=== PATIENT | male | born 1980 | race Hispanic/Latino ===

== ENCOUNTER 2025-07-06 19:48 | Emergency (ER) | payer BC ==
[~2025-07-06] VITALS: Ht 177.8 cm; Wt 104.3 kg
--- NOTE | 2025-07-06 20:03 | NUR ---
UA CUP PROVIDED
--- NOTE | 2025-07-06 20:07 | NUR ---
UA COLLECTED AND SENT
--- NOTE | 2025-07-06 20:33 | ERN ---
General Chief Complaint: Chest Pain Stated Complaint: CHEST PAIN, SOB Time Seen by MD: 20:12 History of Present Illness Initial Comments 44-year-old male who presents for chest pains. Patient reports for the last week or so he has felt left-sided chest pains described as sharp and stabbing. Nonexertional. They do not appear to be consistent with movement. He reports that they have been going on and off for the last few days. He felt a little bit dyspneic earlier. No leg swelling. No cough congestion. Medical conditions: Diabetes, hypertension, dyslipidemia. Currently medicated for all three. Denies drug abuse. Family medical history: Diabetes in his parents, sibling from leukemia. Social history: Denies drug abuse. Denies smoking. Allergies: Coded Allergies: No Known Allergies (Unverified Allergy, Unknown, 07/06/25) Past Medical History Past Medical History: Diabetes-Type II, High Cholesterol, Hypertension Past Surgical History: Other Surgical History Other: RT ANKLE ROS Dictation CONSTITUTIONAL: No chills, no fever, no weakness, no diaphoresis, no malaise. HEAD/FACE: No signs of trauma. EENT: No eye pain, no blurred vision, no tearing, no double vision, no ear pain, no ear discharge, no nose pain, no nasal congestion, no throat pain, no throat swelling, no mouth pain. RESPIRATORY: No cough, no orthopnea, no SOB, no stridor, no wheezing. CARDIOVASCULAR: Chest pain GASTROINTESTINAL/ABDOMINAL: No abdominal pain, no constipation, no diarrhea, no nausea, no vomiting. GENITOURINARY: No abnormal discharge, no dysuria, no frequent urination, no hematuria. No complaints of pain in the genitals. MUSCULOSKELETAL: No back pain, no gout, no joint pain, no joint swelling, no muscle pain, no muscle stiffness, no neck pain. INTEGUMENTARY: No change in color, no change in hair/nails, no dryness, no lesion, no lumps, no rash. NEUROLOGICAL/PSYCH: No anxiety, not depressed, no emotional problem, no headache, no numbness, no pre-existing deficit, no history of seizures, no tremors, no weakness. HEMATOLOGIC/LYMPHATIC: Not anemic, no history of blood clots, no apparent bleeding, no bruising, glands not swollen. All Systems Negative, Except as Noted. Physical Exam Physical Exam Dictation VITAL SIGNS: Reviewed. GENERAL APPEARANCE: Alert, oriented x3, no acute distress, obese. HEAD AND FACE: Non-traumatic. EYES: PERRL, pink conjunctivas, eyelid no trauma, anterior chamber clear. EARS: Pinnas intact and no signs of trauma or erythema. Ear canals clear and no discharge. TMs no erythema. NOSE: No discharge, no bleeding. OROPHARYNX: Mouth normal, teeth no caries, tongue pink. Pharynx clear, no erythema. Tonsils no exudates, no abscesses noted. Mucous membrane moist. NECK: Supple, non-tender, no thyromegaly, no masses, no JVD, no bruits. BREAST: Deferred. CHEST: No tenderness, no crepitus, no paradoxical movement, no retractions. LUNGS: Clear, well-ventilated, symmetric, no rales, no wheezing, no rhonchi, no stridor, good breath sounds bilaterally. HEART: Regular rate, regular rhythm, no murmur, no gallops. VASCULAR: No peripheral edema. ABDOMEN: Soft, positive bowel sounds, nondistended, no guarding, nontender, no rebound, no masses no hepatomegaly, no splenomegaly, no Green's sign, no hernias. RECTAL: Deferred. GENITAL: Deferred. NEUROLOGICAL: Normal speech, gross motor function intact, gross sensory function intact. MUSCULOSKELETAL: Neck nontender, full range of motion, back nontender, full range of motion. EXTREMITIES: Nontender, full range of motion. SKIN: Color pink, dry, no turgor, no rash, no lacerations, no abrasions, no contusions. LYMPHATICS: Deferred. Results Laboratory and Microbiology Lab and Micro Result Laboratory Tests Test 07/06/25 20:07 07/06/25 20:09 07/06/25 21:26 Urine Color LIGHT-YELLOW (YELLOW) Urine Appearance CLEAR (CLEAR) Urine pH 5.0 (5.0-8.0) Urine Specific Warren 1.014 (1.001-1.031) Urine Protein NEGATIVE mg/dL (NEGATIVE) Urine Glucose (UA) NEGATIVE mg/dL (NEGATIVE) Urine Ketones NEGATIVE mg/dL (NEGATIVE) Urine Occult Blood NEGATIVE (NEGATIVE) Urine Nitrate NEGATIVE (NEGATIVE) Urine Bilirubin NEGATIVE mg/dL (NEGATIVE) Urine Urobilinogen 0.2 mg/dL (0.2-1.0) Urine Leukocyte Esterase NEGATIVE Maurice/uL White Blood Count 7.8 K/uL (4.8-10.8) Red Blood Count 4.51 MIL/uL (4.50-6.20) Hemoglobin 14.0 g/dL (14.0-18.0) Hematocrit 41.5 % (42-54) L Mean Corpuscular Volume 92.0 fL (79-99) Mean Corpuscular Hemoglobin 31.0 pg (27.0-33.0) Mean Corpuscular Hemoglobin Concent 33.7 g/dL (32.0-36.0) Red Cell Distribution Width 13.1 % (11.0-15.5) Platelet Count 284 K/uL (130-400) Mean Platelet Volume 10.2 fL (7.5-10.5) Immature Granulocyte % (Auto) 0.5 % (0-1) Neutrophils (%) (Auto) 49.7 % (40.0-77.0) Lymphocytes (%) (Auto) 37.2 % (21.0-51.0) Monocytes (%) (Auto) 6.2 % (3.0-13.0) Eosinophils (%) (Auto) 5.5 % (0.0-8.0) Basophils (%) (Auto) 0.9 % (0.0-5.0) Neutrophils # (Auto) 3.9 K/uL (1.8-7.7) Lymphocytes # (Auto) 2.9 K/uL (1.0-4.8) Monocytes # (Auto) 0.5 K/uL (0.1-1.0) Eosinophils # (Auto) 0.43 K/uL (0.00-0.70) Basophils # (Auto) 0.07 K/uL (0.00-0.20) Absolute Immature Granulocyte (auto 0.04 K/uL (0-1) Nucleated Red Blood Cells 0.0 % (0.0-0.19) Erythrocyte Sedimentation Rate 2 MM/HR (0-15) D-Dimer Quantitative (PE/DVT) 328 ng/mL (0-500) Sodium Level 144 mmol/L (136-145) Potassium Level 3.5 mmol/L (3.5-5.1) Chloride Level 108 mmol/L (101-111) Carbon Dioxide Level 30 mmol/L (21-32) Blood Urea Nitrogen 10 mg/dL (7-18) Creatinine 1.1 mg/dL (0.5-1.3) Glomerular Filtration Rate Calc 85 mL/min (>90) Random Glucose 151 mg/dL (70-105) H Total Calcium 8.4 mg/dL (8.5-10.1) L Total Creatine Kinase 215 U/L (21-232) Troponin I High Sensitivity 31 ng/L (4-75) 27 ng/L (4-75) C-Reactive Protein, Quantitative < 0.50 mg/L (0.5-3.0) L MDM CC: Chest pain Historian: Patient Comorbidities: Diabetes, hypertension, dyslipidemia Limitations by social determinants of health: None Differential diagnosis: ACS, musculoskeletal type pain, PE, TID, pneumothorax, pneumonia, other Vital signs: Blood pressure 150/109, otherwise stable Clinical exam: Unremarkable. No clinical signs of heart failure or distress. EKG: Sinus rhythm, rate 69, normal axis, good R-wave progression, intervals are stable. No STEMI. Independently interpreted by me. Patient's labs show no leukocytosis no anemia. D-dimer was normal. ESR CRP normal. Chemistry normal. Troponin x2 normal. Urinalysis unremarkable. Chest x-ray: No cardiomegaly pleural effusions or focal infiltrates. Independently interpreted by me. Patient has a heart score of three based on age risk factors presentation. Do normal troponins. Can be worked up as an outpatient. No signs of PE, TID, significant vascular injury, or any other life threats. Patient has been follow up as an outpatient. He has a PCP. We will recommend he contact his doctor in the morning. ED Course Orders Procedure Category Date Status Time Vital Signs Per CPOE 07/06/25 Transmitted Routine 20:03 Chest 1vw RAD 07/06/25 Resulted 20:03 12 Lead Ekg Tracing- EKG 07/06/25 Logged Technical 20:03 Oxygen By Nc/Pulse Ox CPOE 07/06/25 Transmitted 20:03 Maintain Iv CPOE 07/06/25 Transmitted 20:03 Iv Insertion CPOE 07/06/25 Transmitted 20:03 Cardiac Monitoring CPOE 07/06/25 Transmitted 20:03 Pulse Oximetry With CPOE 07/06/25 Transmitted Vs And Prn 20:03 Cbc With Differential LAB 07/06/25 Complete 20:03 Activity: Br W/Brp CPOE 07/06/25 Transmitted With Assist 20:03 Creatine Kinase, Total LAB 07/06/25 Complete 20:03 Troponin I High LAB 07/06/25 Complete Sensitivity 20:03 Urinalysis Profile LAB 07/06/25 Complete 20:03 Basic Metabolic Panel LAB 07/06/25 Complete 20:03 D-Dimer LAB 07/06/25 Complete 20:30 Erythrocyte Sed Rate LAB 07/06/25 Complete 20:30 Crp Quantitative LAB 07/06/25 Complete 20:30 Troponin I High LAB 07/06/25 Complete Sensitivity 21:19 Vital Signs Date Time Temp Pulse Resp B/P (MAP) Pulse Ox O2 Delivery O2 Flow Rate FiO2 07/06/25 20:42 97.9 62 18 142/88 98 Room Air* 0 21 07/06/25 20:01 97.9 69 18 150/109 98 Room Air DX & DISP Disposition: Discharge Departure Impression: Primary Impression: Nonspecific chest pain Condition: Stable Additional Instructions: There are no life-threatening findings on your workup here today. Your EKG is normal. Chest that has regular normal. Your blood work (CBC with differential, metabolic panel, troponin x2, D-dimer, ESR, CRP) is normal. As we discussed, you are low risk for significant cardiac disease at this time, but not 0 risk. Please call your doctor tomorrow morning to make it an upcoming appointment or cardiac evaluation. Please return to the emergency department if you have any concerning symptoms. Referrals: NONE (PCP) MARISOL DA SILVA DO Jul 06, 2025 20:33
[2025-07-06 20:34] LABS: IMMATURE GRANULOCYTE ABSOLUTE 0.04 K/uL (0-1); NUCLEATED RED BLOOD CELLS 0.0 % (0.0-0.19); PLATELET COUNT (AUTO) 284 K/uL (130-400); RED BLOOD CELL COUNT(AUTO) 4.51 MIL/uL (4.50-6.20); RED CELL DISTRIBUTION WIDTH 13.1 % (11.0-15.5); WHITE BLOOD COUNT (AUTO) 7.8 K/uL (4.8-10.8)
[2025-07-06 20:43] LABS: CREATININE 1.1 mg/dL (0.5-1.3); GLOMERULAR FILTR. RATE CALC 85.0 mL/min (>90); GLUCOSE,RANDOM 151.0 mg/dL (70-105); SODIUM SERUM 144.0 mmol/L (136-145); UREA NITROGEN, BLOOD 10.0 mg/dL (7-18)
[2025-07-06 20:47] LABS: ADD UA MICROSCOPIC NO; APPEARANCE,URINE CLEAR (CLEAR); GLUCOSE, URINE (UA) NEGATIVE (NEGATIVE); LEUKOCYTE ESTERASE ,URINE NEGATIVE Leu/uL (NEGATIVE); NITRATE,URINE NEGATIVE (NEGATIVE); OCCULT BLOOD,URINE NEGATIVE (NEGATIVE)
[2025-07-06 20:53] LABS: CREATINE KINASE, TOTAL 215.0 U/L (21-232)
--- NOTE | 2025-07-06 21:57 | HMCIMG ---
EXAM: CR Chest, 1 View. CLINICAL HISTORY: CHEST PAIN COMPARISON: None provided. FINDINGS: LUNGS: There is no mass, infiltrate, or acute pulmonary abnormality. PLEURAL SPACES: No evidence of pleural effusion or pneumothorax. MEDIASTINUM: Cardiac size and mediastinal contours within normal limits. BONES: No acute osseous abnormality. IMPRESSION: No acute cardiopulmonary pathology is evident. /Curtice
[2025-07-06 22:26] VITALS: BP 152/84; PULSE 65; RESP 18; TEMP 97.9; O2SAT 98
--- NOTE | 2025-07-07 07:09 | EKG ---
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
== END 2025-07-06 22:27 | disposition home or self-care (01) ==
LOC: EDH 19:48
DX: R07.89 Other chest pain (principal); R06.00 Dyspnea, unspecified; E11.9 Type 2 diabetes mellitus without complications; E78.00 Pure hypercholesterolemia, unspecified; I10 Essential (primary) hypertension
CPT/HCPCS: 36415; 71045; 80048; 81003; 82550; 84484; 85025; 85378; 85651; 86140; 93005; 99285